=== PATIENT | male | born 1960 | race Caucasian/White ===

== ENCOUNTER 2022-03-16 11:00 | Emergency (ER) | payer OTHER, SELFPAY ==
--- NOTE | ~2022-03-16 | XR_ITS ---
AP and oblique views of the left ribs, and PA and lateral chest radiographs Clinical History: Pain Findings: Possible minimally displaced fracture of the left 11th rib. No other fracture identified. L ungs are clear, without focal consolidation or pleural effusion. Cardiomediastinal contour is within normal limits. Soft tissues are unremarkable. Impression: Possible minimally displaced fracture left 11th rib. Correlate for point tenderness. Clear lungs. Reviewed, dictated and finalized at location . TOE BUFFER Impression: Possible minimally displaced fracture left 11th rib. Correlate for point tender ness. Clear lungs.
--- NOTE | 2022-03-16 11:04 | ED.FALL ---
HPI - Fall General Chief Complaint: Unspecified Stated Complaint: Fall Injury/Rib Pain Time Seen by Provider: 03/16/22 11:04 Source: patient and RN notes reviewed History of Present Illness HPI Narrative: patient is a 61-year-old male who presents to the Urgent Care with complaints of left rib pain. Patient states hurts with deep breathing. Patient reports falling off a 4 ft ladder and on to his left side on Sunday. Denies any other injuries from the fall. States he did not hit his head and denies any loss of consciousness. Patient has been taking ibuprofen for the pain. No other acute complaints. No acute distress noted. Patient aware of the plan of care. Some parts of this dictation were generated by voice recognition software and may contain typographical and/or grammatical inaccuracies. Related Data Home Medications Medication Instructions Recorded Confirmed amlodipine 10 mg tablet 10 mg PO DAILY 03/16/22 03/16/22 atorvastatin 40 mg tablet 40 mg PO DAILY 03/16/22 03/16/22 Allergies Allergy/AdvReac Type Severity Reaction Status Date / Time No Known Allergies Allergy Verified 03/16/22 11:19 Review of Systems Review of Systems: CONSTITUTIONAL: Denies fever, chills, or sweats. EYES: Denies visual changes, redness, or discharge. ENT: Denies rhinorrhea, congestion, sore throat, or otalgia. CARDIOVASCULAR: Denies chest pain, palpitations, or edema. RESPIRATORY: Denies cough or dyspnea. Reports of left rib pain and pain with deep breathing GASTROINTESTINAL: Denies abdominal pain, nausea, vomiting, or diarrhea. GENITOURINARY: Denies dysuria or hematuria. SKIN: Denies rash or itching. MUSCULOSKELETAL: Denies back pain, joint pain, or myalgia. NEUROLOGIC: Denies headache, numbness, or weakness. All other systems reviewed are negative, except as documented in HPI. PMFSH Comments At the time of my signature, I reviewed and agree with the nursing past medical, surgical, social, and family history. There is no relevant family history pertinent to the patient complaint. Exam Narrative: GENERAL: This is a well-nourished, well-developed patient, in no apparent distress. HEAD: normocephalic, atraumatic. EYES: PERRL. Sclera clear/white. Vision is grossly intact. EARS: External ears normal NOSE: External nose normal with no obvious nasal discharge, nares without redness, no rhinorrhea. THROAT: Mucous membranes moist NECK: Neck supple RESPIRATORY: scant inspiratory wheezes throughout. Moderate left lateral/ anterior chest discomfort your the 10th rib SKIN: warm, intact with no suspicious lesions or rash, good texture and turgor. NEURO: awake, alert, and oriented to person, place and time. There were no obvious focal neurologic abnormalities. EXTREMITIES: No clubbing, cyanosis, or edema. Course Course Level of Care: Express Care Visit Vital Signs Vital signs: Vital Signs Temperature 97.9 F 03/16/22 11:17 Pulse Rate 80 03/16/22 11:17 Respiratory Rate 100 H 03/16/22 11:17 Blood Pressure 137/81 03/16/22 11:17 Pulse Oximetry 100 03/16/22 11:17 Oxygen Delivery Room Air 03/16/22 11:17 Temperature 97.9 F 03/16/22 11:17 Pulse Rate 80 03/16/22 11:17 Respiratory Rate 100 H 03/16/22 11:17 Blood Pressure 137/81 03/16/22 11:17 Pulse Oximetry 100 03/16/22 11:17 Oxygen Delivery Room Air 03/16/22 11:17 reviewed MDM - Fall MDM Narrative Medical decision making narrative: reviewed x-ray results with the patient. He is aware that he does have an 11th rib fracture on the left side. Advised patient to refrain from smoking due to increased risk of pneumonia. Be sure to practice deep breathing several times per hour. Avoid any strenuous activities such as heavy lifting/ pushing / pulling. Continue ibuprofen / Tylenol as needed. Rib pain can last for several weeks. If he develops any increase in pain associated with shortness of breath, chest pain or cough -go to the emergency
[2022-03-16 11:17] VITALS: BP 137/81; PULSE 80; RESP 100; TEMP 36.6; O2SAT 100
== END 2022-03-16 12:18 | disposition home or self-care (01) ==
PROVIDERS: Emergency Provider Nurse Practitioner Family
DX: S22.32XA Fracture of one rib, left side, initial encounter for closed fracture (principal); W11.XXXA Fall on and from ladder, initial encounter; I10 Essential (primary) hypertension
CPT/HCPCS: 71046; 71100; 99213; G0463

== ENCOUNTER 2022-05-16 15:03 | Emergency (ER) | payer OTHER, SELFPAY ==
--- NOTE | ~2022-05-16 | XR_ITS ---
EXAMINATION: XR chest 2V Exam Date/Time: 05/16/2022 15:51 MAIL PROCESSING CLERK HISTORY: POST-COVID COUGH SINCE 2021. SMOKER. Comparison: 03/16/2022. RESULT: Lines, tubes, and devices: Cholecystectomy clips. Lungs and pleura: Clear. Cardiomediastinal silhouette: Stable. Other: No acute osseous or upper abdominal finding. IMPRESSION: No acute cardiopulmonary process. Reviewed, dictated and finalized at location K. PROCESSING CLERK
[2022-05-16 15:14] VITALS: BP 127/81; PULSE 95; RESP 20; TEMP 36.6; O2SAT 98
--- NOTE | 2022-05-16 15:33 | ED.URI ---
HPI - URI/Sore Throat General Chief Complaint: Upper Respiratory Infection Stated Complaint: Cough/Shortness of Breath Time Seen by Provider: 05/16/22 15:33 Source: patient, RN notes reviewed and old records reviewed Mode of arrival: ambulatory Limitations: no limitations History of Present Illness HPI Narrative: 61 year old male presents to express care with complaints of cough and some shortness of breath. Patient reports that he had fractured rib he about a week before Stacy and then 3 days after Charity he came down with COVID. Patient states he has had cough since having COVID and has noted some shortness of breath with exertion. Patient reports that he has had since Sunday nausea and vomiting which is gone today but has some continued diarrhea. Patient reports no known fevers. MD elicited complaint: cough and other (some JIMENEZ, nausea,vomiting and diarrhea) Onset (ago): week(s) (persistent cough, nausea,vomiting and diarrhea for 3 days,) Description of mucous: clear Able to tolerate fluids by mouth: Yes Treatments prior to arrival: other (Mucinex) Related Data Home Medications Medication Instructions Recorded Confirmed amlodipine 10 mg tablet 10 mg PO DAILY 03/16/22 03/16/22 atorvastatin 40 mg tablet 40 mg PO DAILY 03/16/22 03/16/22 Allergies Allergy/AdvReac Type Severity Reaction Status Date / Time No Known Allergies Allergy Verified 03/16/22 11:19 Review of Systems Review of Systems: CONSTITUTIONAL: Denies malaise, chills, sweats, or fever. EYES: Denies visual changes, redness, or discharge. ENT: Reports rhinorrhea, congestion, no sinus pain, no otalgia or sore throat. CARDIOVASCULAR: Denies chest pain, palpitations, or edema. RESPIRATORY: Reports persistent cough.? Reports some dyspnea with exertion GASTROINTESTINAL: Denies abdominal pain, positive for 3 days of nausea, vomiting, which has resoved today but continues with some diarrhea SKIN: Denies rash or itching. MUSCULOSKELETAL: Denies myalgia. NEUROLOGIC: Denies headache. All systems reviewed & are unremarkable except as noted in HPI and below PMFSH Past Medical History Medical History Elevated cholesterol Hypertension Surgical History Surgical History (Updated 05/17/22 @ 20:30 by Jo Ann Tao NP) History of cholecystectomy Social History Social History (Updated 05/17/22 @ 20:24 by Jo Ann Tao NP) Smoking packs per day: 1 Smoking cigarettes per day: 20.0 Years smoked: 20 Smoking pack-years: 20.00 Smoking status: Current every day smoker Tobacco type: cigarettes Alcohol intake: current Alcohol use details: social Substance use type: does not use Living arrangements: with family Gender identity (if verbalized by the patient): Male Comments At time of signature, agree with nursing past medical, surgical, social and family history. There is no relevant family history pertinent to the presenting complaint Exam Narrative: GENERAL: Well-appearing, well-nourished, and in no acute distress. HEAD: Normocephalic EYES: PERRLA, conjunctivae clear ENT: Nares clear, turbinates edematous and erythematous, clear discharge. Mucous membranes moist. TM pearly hernández with dull light reflex bilaterally; no tragal tenderness. Oropharynx erythematous without lesions. Tonsils not enlarged and without exudate, no drooling, no hoarseness, no trismus, uvula midline. NECK: Supple. No lymphadenopathy CHEST: Clear to auscultation, breath sounds equal. No wheezing, rhonchi, rales, or stridor. No respiratory distress, speaks in full sentences. cough noted SAO2 98% on room air HEART: Regular rate and rhythm. No murmur heard. SKIN: Warm, dry, no rash. NEURO: Alert and oriented x3. PSYCH: Normal mood and affect Course Course Emergency Course: Patient is aware of diagnosis, understands and agrees to treatment plan.? Anticipatory guidance given.?
== END 2022-05-16 16:34 | disposition home or self-care (01) ==
PROVIDERS: Emergency Provider Registered Nurse; PCP Hospitalist
DX: R05.9 Cough, unspecified (principal); R11.2 Nausea with vomiting, unspecified; R19.7 Diarrhea, unspecified; E78.00 Pure hypercholesterolemia, unspecified; I10 Essential (primary) hypertension; F17.210 Nicotine dependence, cigarettes, uncomplicated
CPT/HCPCS: 71046; 99213; G0463